=== PATIENT | male | born 1970 | race Caucasian/White ===

== ENCOUNTER 2016-03-17 13:52 | Emergency (ER) | payer BC ==
[2016-03-17] MEDS ORDERED: SODIUM CHLORIDE 0.9% 1,000 ML ONE (15:04)
[2016-03-17] MEDS ORDERED: HYDROCODONE/ACETAMINOPHEN 5/325MG TABLET ONE (15:04)
[2016-03-17] MEDS ORDERED: PROPARACAINE HCL 0.5% 300 GTTS/BOT SOLN.DROP ONE (15:05)
--- NOTE | 2016-03-17 15:52 | RAD ---
HAND-RIGHT 3 VIEWS HISTORY: Hand versus [place] door. COMPARISONS: None. FINDINGS: 3 views of the right hand demonstrate normal bony mineralization. The osseous structures appear to remain intact. The carpal alignment is normal. No focal soft tissue abnormalities are seen. IMPRESSION: 1. Negative views of the right hand.
--- NOTE | 2016-03-17 15:52 | RAD ---
HAND-LEFT 3 VIEWS HISTORY: Injury. COMPARISONS: None. FINDINGS: 3 views of the left hand were performed demonstrating normal bony mineralization. The visualized osseous structures appear to be intact. The alignment is normal. The joint spaces are well-maintained. No focal soft tissue abnormalities are seen. IMPRESSION: 1. Negative views of the left hand with no discrete fracture visualized.
== END 2016-03-17 17:12 | disposition home or self-care (01) ==
LOC: ED 13:52
DX: S61.012A Laceration without foreign body of left thumb without damage to nail, initial encounter (principal); S66.292A Other specified injury of extensor muscle, fascia and tendon of left thumb at wrist and hand level, initial encounter; H57.13 Ocular pain, bilateral; W45.8XXA Other foreign body or object entering through skin, initial encounter; W20.8XXA Other cause of strike by thrown, projected or falling object, initial encounter; Y93.H3 Activity, building and construction; Y92.9 Unspecified place or not applicable; Y99.0 Civilian activity done for income or pay